=== PATIENT | male | born 1930 | race Caucasian/White ===

== ENCOUNTER → 2018-01-11 | Outpatient (CLI) | payer MEDICARE, BC ==
[2018-01-11 15:16] LABS: Basophils # (A) 0.1 k/uL (0-0.2); Basophils % (A) 1 %; Eosinophils # (A) 0.5 k/uL (0-0.7); Eosinophils % (A) 5 %; HCT 40.3 % (39.0-53.0); HGB 13.1 gm/dL (13.0-17.5); Lymphocytes % (A) 21 %; MCH 30.3 pg (25.0-35.0); MCHC 32.5 g/dL (31.0-37.0); MCV 93.4 fL (80.0-100.0); Mean Platelet Volume 8.2; Monocytes # (A) 0.5 k/uL (0-1.0); Monocytes % (A) 5 %; Neutrophils # (A) 6.3 k/uL (1.3-7.7); Neutrophils % (A) 66 %; Platelet Count 191 k/uL (150-450); RBC 4.31 m/uL (4.30-5.90); RDW 14.1 % (11.5-15.5); WBC 9.5 k/uL (3.8-10.6)
[2018-01-11 15:18] LABS: Appearance,Urine Clear (Clear); Bacteria,Urine Rare /hpf; Bilirubin,Urine Negative (Negative); Blood,Urine Large (Negative); Budding Yeast,Urine Occasional /hpf; Color,Urine Yellow; Glucose,Urine (UA) Negative (Negative); Ketones,Urine Negative (Negative); Leukocyte Esterase,Urine Trace (Negative); Mucus,Urine Rare /hpf; Nitrite,Urine Negative (Negative); PH, Urine 5.5 (5.0-8.0); Protein,Urine Trace (Negative); RBC,Urine >182 /hpf (0-5); Specific Gravity,Urine 1.011 (1.001-1.035); Squamous Epithelial Cell,Urine <1 /hpf (0-4); Urobilinogen,Urine <2.0 mg/dL (<2.0); WBC,Urine 12 /hpf (0-5)
[2018-01-11 15:32] LABS: Calcium 10.1 mg/dL (8.4-10.2); Potassium 5.2 mmol/L (3.5-5.1)
== END | disposition home or self-care (01) ==
LOC: LABPAT 14:22
PROVIDERS: ATTEND Urology
DX: Z01.818 Encounter for other preprocedural examination (principal); I10 Essential (primary) hypertension; C67.9 Malignant neoplasm of bladder, unspecified; Z01.812 Encounter for preprocedural laboratory examination
CPT/HCPCS: 36415; 80048; 81001; 85025; 87086; 93005

== ENCOUNTER → 2018-04-01 | Outpatient (CLI) | payer MEDICARE, BC ==
[2018-04-01 14:57] LABS: HCT 40.6 % (39.0-53.0); HGB 12.9 gm/dL (13.0-17.5); MCH 29.6 pg (25.0-35.0); MCHC 31.9 g/dL (31.0-37.0); Mean Platelet Volume 7.3; Platelet Count 237 k/uL (150-450); RBC 4.37 m/uL (4.30-5.90); RDW 14.3 % (11.5-15.5); WBC 13.3 k/uL (3.8-10.6)
[2018-04-01 15:06] LABS: Calcium 9.5 mg/dL (8.4-10.2); Potassium 4.8 mmol/L (3.5-5.1)
[2018-04-01 16:15] LABS: Appearance,Urine Clear (Clear); Bilirubin,Urine Negative (Negative); Blood,Urine Negative (Negative); Color,Urine Yellow; Glucose,Urine (UA) Negative (Negative); Ketones,Urine Negative (Negative); Leukocyte Esterase,Urine Negative (Negative); Nitrite,Urine Negative (Negative); PH, Urine 5.5 (5.0-8.0); Protein,Urine Negative (Negative); Specific Gravity,Urine 1.011 (1.001-1.035); Urobilinogen,Urine <2.0 mg/dL (<2.0)
== END ==
LOC: LABPAT 14:39
PROVIDERS: ATTEND Urology
DX: Z01.818 Encounter for other preprocedural examination (principal); Z01.812 Encounter for preprocedural laboratory examination; C67.9 Malignant neoplasm of bladder, unspecified; I10 Essential (primary) hypertension; R31.29 Other microscopic hematuria
CPT/HCPCS: 80048; 81003; 85027; 87086; 93005

== ENCOUNTER 2018-04-06 08:36 | Day surgery (SDC) | payer MEDICARE, BC ==
[2018-03-30 16:14] VITALS: BMI 31.3
--- NOTE | 2018-04-05 20:53 | P.GSHP ---
History of Present Illness H&P Date: 04/05/18 87 yo male with a history of prostate cancer treated with ebrt and lhrh. He has donewell with that HE recently had gross hematuria Upper tract studies were normal Cysto identified several bladder tumors He comes for a turbt - Constitutional Constitutional: Denies chills, Denies fever - EENT Eyes: denies blurred vision, denies pain Ears, nose, mouth and throat: Denies headache, Denies sore throat - Cardiovascular Cardiovascular: Denies chest pain, Denies shortness of breath - Respiratory Respiratory: Denies cough, Denies 7 - Gastrointestinal Gastrointestinal: Denies abdominal pain, Denies diarrhea, Denies nausea, Denies vomiting - Genitourinary (Female) Genitourinary: Denies dysuria, Denies hematuria - Genitourinary (Male) Genitourinary: Denies dysuria, Denies hematuria - Musculoskeletal Musculoskeletal: Denies myalgias - Integumentary Integumentary: Denies pruritus, Denies rash - Neurological Neurological: Denies numbness, Denies weakness - Psychiatric Psychiatric: Denies anxiety, Denies depression - Endocrine Endocrine: Denies fatigue, Denies weight change Past Medical History Past Medical History: Cancer, COPD, Eye Disorder, GERD/Reflux, Hyperlipidemia, Hypertension, Osteoarthritis (OA), Prostate Disorder Additional Past Medical History / Comment(s): HX PROSTATE CA 2010, HAD RADIATION TX, SEEDS IMPLANTED. BLADDER CA CURRENT. BLOOD IN URINE OCC. HX GLAUCOMA, DETACHED RETINA, LOSS VISION RT EYE. COPD EXAC 01/2018, BEING FOLLOWED BY DR SANTOS, WITH F/U APPT FOR FINAL CLEARANCE VISIT 04/01/18. HAD STEROIDS IN LAST MONTH. History of Any Multi-Drug Resistant Organisms: None Reported Past Surgical History: Hernia Repair, Tonsillectomy Additional Past Surgical History / Comment(s): RT EYE SURGERY. EXC CATARACTS. COLONOSCOPY. Past Anesthesia/Blood Transfusion Reactions: Previous Problems w/ Anesthesia Additional Past Anesthesia/Blood Transfusion Reaction / Comment(s): TAKES LONG TIME TO AWAKEN, EVEN WITH COLONOSCOPY. Smoking Status: Former smoker - Past Family History Mother Family Medical History: No Reported History Medications and Allergies Home Medications Medication Instructions Recorded Confirmed Type Albuterol Inhaler [Ventolin Hfa 1 - 2 puff INHALATION RT-Q6H PRN 03/30/18 History Inhaler] Albuterol Nebulized (Conc) 2.5 mg INHALATION TID 03/30/18 03/30/18 History [Ventolin Nebulized (Conc)] Budesonide [Pulmicort] 0.5 mg INHALATION BID 03/30/18 03/30/18 History Formoterol Fumarate [Perforomist] 20 mcg INHALATION BID 03/30/18 03/30/18 History Losartan Potassium [Cozaar] 100 mg PO DAILY 03/30/18 03/30/18 History Multivitamins, Thera [Multivitamin 1 tab PO DAILY 03/30/18 03/30/18 History (formulary)] Naproxen Sodium [Aleve] 220 - 440 mg PO BID PRN 03/30/18 03/30/18 History Omeprazole [PriLOSEC] 20 mg PO AC-BID 03/30/18 03/30/18 History Allergies Allergy/AdvReac Type Severity Reaction Status Date / Time Penicillins Allergy Unknown Verified 03/30/18 15:28 Surgical - Exam - General well developed, well nourished, no distress - Eyes PERRL - ENT no hearing loss - Neck no masses, trachea midline - Respiratory normal expansion, normal respiratory effort - Cardiovascular Rhythm: regular - Abdomen Abdomen: soft, non tender - Genitourinary normal penis with no external lesions, testicles present - Integumentary no rash, no growths - Neurologic normal coordination, normal sensation - Musculoskeletal normal gait, normal posture - Psychiatric oriented to time, oriented to person, oriented to place, speech is normal, memory intact Assessment and Plan Assessment: Impression: Groass hematuria secondary to bladder tumors.. Plan Turbt
[~2018-04-06 08:36] MED LIST: HYDROmorphone 0.5 MG/0.5 ML SYRINGE IVP PRN; LACTATED RINGERS 1,000 ML IV SCH; LIDOCAINE 1% 20 ML VIAL (10MG/ML) FOR IV START INTRADERMA PRN; ONDANSETRON 4 MG/2 ML VIAL IVP ONE; Pre Op ABX Message 1 EACH MISC MISCELLANE ONE
[2018-04-06] MEDS ORDERED: DEXAMETHASONE SOD PHOS (MDV) 100 MG/10 ML VIAL IV ONE (09:07)
[2018-04-06] MEDS ORDERED: fentaNYL (PF) 50 MCG/ML 2 ML AMP ONE (10:06)
[2018-04-06] MEDS ORDERED: MIDAZOLAM 2 MG/2 ML VIAL ONE (10:06)
[2018-04-06] MEDS ORDERED: PROPOFOL 10 MG/ML 20 ML VIAL IV ONE (10:06)
[2018-04-06] MEDS ORDERED: SUCCINYLCHOLINE CHLORIDE 100 MG/5 ML SYR IV ONE (10:06)
[2018-04-06] MEDS ORDERED: LIDOCAINE 1% INJ 10MG/ML (20 ML MDV) ONE (10:06)
--- NOTE | 2018-04-06 10:52 | P.OP ---
Date of Procedure: 04/06/18 Preoperative Diagnosis: Bladder cancer Postoperative Diagnosis: Same Procedure(s) Performed: TURBT, small Anesthesia: GETA Surgeon: Harish Gray Estimated Blood Loss (ml): 5 Pathology: other (Bladder tumor) Condition: stable Disposition: PACU Indications for Procedure: The patient is 87. Gross hematuria. Evaluation identified a small bladder tumor on the left trigone. He comes for resection Description of Procedure: Patient is brought to the operating suite. He is given successful general endotracheal anesthesia. He's placed lithotomy position with a sterile prep and drape. The urethra is dilated with [place] sounds from [id number]. Under direct vision the 26-Swedish sheath Foroblique lens and direct vision obturator introduced into the urethra. The urethra is normal. The prostate is not obstructing. Upon entering the bladder there is a small tumor on the left hemitrigone. The bladder is inspected and normal. With the Garcia resectoscope the tumor was resected medially to laterally. The tumor is evacuated from the bladder. The base of the tumor is cauterized thoroughly. The tumor cover the left ureteral orifice the right ureteral orifice is normal. There is no hydronephrosis on computed tomography scan. Jerry catheters placed patient's awakened and returned recovery room in good condition. He'll be discharged home upon recovery and found in the office next week for catheter removal pathology report.
[2018-04-06 11:14] VITALS: TEMP 96.9
[2018-04-06 11:35] VITALS: RESP 16
[2018-04-06 13:09] VITALS: BP 122/79; PULSE 81
== END 2018-04-06 13:30 | disposition home or self-care (01) ==
LOC: OR 08:36
PROVIDERS: ATTEND Urology
DX: C67.9 Malignant neoplasm of bladder, unspecified (principal); Z85.46 Personal history of malignant neoplasm of prostate; J44.9 Chronic obstructive pulmonary disease, unspecified; K21.9 Gastro-esophageal reflux disease without esophagitis; E78.5 Hyperlipidemia, unspecified; I10 Essential (primary) hypertension; M19.90 Unspecified osteoarthritis, unspecified site; Z92.3 Personal history of irradiation; Z87.891 Personal history of nicotine dependence; Z79.899 Other long term (current) drug therapy; Z88.0 Allergy status to penicillin
CPT/HCPCS: 52234; 88307; J2250; J2405; J2001; J3010; J1100; J0330; J2704; J1170

== ENCOUNTER 2018-04-07 00:44 | Emergency (ER) | payer MEDICARE, BC ==
[2018-04-07 00:56] VITALS: TEMP 98.4
[2018-04-07] MEDS ORDERED: PHENAZOPYRIDINE 200 MG TAB PO STA (02:41)
[2018-04-07] MEDS ORDERED: SODIUM CHLORIDE 0.9% 1,000 ML IV ONE (02:41)
[2018-04-07] MEDS ORDERED: MORPHINE SULFATE 2 MG/ML SYRINGE IVP STA (02:41)
--- NOTE | 2018-04-07 03:29 | ED ---
Abdominal Pain HPI - General Chief Complaint: Abdominal Pain Stated Complaint: male Time Seen by Provider: 04/07/18 01:22 Source: patient Mode of arrival: wheelchair Limitations: no limitations - History of Present Illness Initial Comments: 87-year-old male patient presents to the emergency department today for complaints of suprapubic pain and cramping. Patient underwent transurethral removal of bladder tumors earlier in the day. Was discharged at 3:00. This evening patient started having pain to the suprapubic region. Did pull on the catheter. They deny any hematuria in the output. reports patient has not been eating or drinking anything today, states he didn't feel like it. He denies any nausea or vomiting. Denies any fevers or chills. He believes his catheter may be plugged. Patient denies any recent rash, shortness breath, chest pain, nausea, vomiting, diarrhea, constipation, back pain, numbness, tingling, dizziness, weakness, headache, visual changes, or any other complaints. - Related Data Home Medications Medication Instructions Recorded Confirmed Albuterol Inhaler [Ventolin Hfa 1 - 2 puff INHALATION RT-Q6H PRN 03/30/18 Inhaler] Albuterol Nebulized (Conc) 2.5 mg INHALATION TID 03/30/18 04/06/18 [Ventolin Nebulized (Conc)] Budesonide [Pulmicort] 0.5 mg INHALATION BID 03/30/18 04/06/18 Formoterol Fumarate [Perforomist] 20 mcg INHALATION BID 03/30/18 04/06/18 Losartan Potassium [Cozaar] 100 mg PO DAILY 03/30/18 04/06/18 Multivitamins, Thera [Multivitamin 1 tab PO DAILY 03/30/18 04/06/18 (formulary)] Naproxen Sodium [Aleve] 220 - 440 mg PO BID PRN 03/30/18 04/06/18 Omeprazole [PriLOSEC] 20 mg PO AC-BID 03/30/18 04/06/18 Previous Rx's Medication Instructions Recorded Acetaminophen with Codeine 1 tab PO Q4H PRN 3 Days #14 tab 04/06/18 [Tylenol w/codeine #3] Allergies Allergy/AdvReac Type Severity Reaction Status Date / Time Penicillins Allergy Unknown Verified 04/06/18 08:51 Review of Systems ROS Statement: Those systems with pertinent positive or pertinent negative responses have been documented in the HPI. ROS Other: All systems not noted in ROS Statement are negative. Past Medical History Past Medical History: GERD/Reflux, Hypertension, Respiratory Disorder History of Any Multi-Drug Resistant Organisms: None Reported Past Surgical History: Bladder Surgery, Hernia Repair Past Psychological History: Anxiety Smoking Status: Former smoker Past Alcohol Use History: None Reported Past Drug Use History: None Reported General Exam Limitations: no limitations General appearance: alert, in no apparent distress, other (Physical well- developed, well-nourished adult male patient in no acute distress. Vital signs upon presentation are temperature 98.4F, pulse 63, respirations 18, blood pressure 139/69, pulse ox 95% on room air.) ENT exam: Present: normal exam, normal oropharynx, mucous membranes moist Respiratory exam: Present: normal lung sounds bilaterally. Absent: respiratory distress, wheezes, rales, rhonchi, stridor Cardiovascular Exam: Present: regular rate, normal rhythm, normal heart sounds. Absent: systolic murmur, diastolic murmur, rubs, gallop, clicks GI/Abdominal exam: Present: soft, tenderness (Left lower quadrant tenderness), normal bowel sounds. Absent: distended, guarding, rebound, rigid Neurological exam: Present: alert, oriented X3, CN II-XII intact Psychiatric exam: Present: normal affect, normal mood Skin exam: Present: warm, dry, intact, normal color. Absent: rash Course Vital Signs 04/07/18 04/07/18 00:50 04:09 Temperature 98.4 F Pulse Rate 63 81 Respiratory 18 16 Rate Blood Pressure 139/69 116/75 O2 Sat by Pulse 95 95 Oximetry Medical Decision Making - Medical Decision Making 87-year-old male patient presents to the emergency department today for evaluation of suprapubic abdominal cramping and possible obstructed catheter. Physical examination did reveal some mild left lower quadrant tenderness. Catheter was exchanged. Patient had minimal output suited infused 1 L of normal saline as he had not been having good oral intake throughout the day. Patient did have output of clear yellow urine approximately 200 mL. Patient is given morphine and Pyridium in the department, upon reevaluation he reports resolution of symptoms. He'll be discharged home with instructions to increase his fluid intake. Is instructed to follow up with Dr. Gray for recheck as soon as possible. Return parameters were discussed in detail. He verbalizes understanding and agrees with this plan. Disposition Clinical Impression: Suprapubic pain, Postoperative pain Disposition: HOME SELF-CARE Condition: Good Instructions: Jerry Catheter Placement and Care (ED), Abdominal Pain (ED) Additional Instructions: While in the emergency department Ady had a Jerry catheter change. We did have output of clear yellow urine. Patient received morphine and Pyridium for what seemed to be bladder spasms. He is instructed to follow-up with his urologist for recheck in 1-2 days. Return parameters were discussed in detail. He verbalizes understanding and agrees with this plan. Is patient prescribed a controlled substance at d/c from ED?: No Referrals: Ryan Arredondo MD [Primary Care Provider] - 1-2 days Time of Disposition: 03:57
[2018-04-07 04:10] VITALS: BP 116/75; PULSE 81; RESP 16
== END 2018-04-07 04:09 | disposition home or self-care (01) ==
LOC: EC 00:44
DX: G89.18 Other acute postprocedural pain (principal); R10.30 Lower abdominal pain, unspecified; K21.9 Gastro-esophageal reflux disease without esophagitis; I10 Essential (primary) hypertension; Z79.51 Long term (current) use of inhaled steroids; Z79.899 Other long term (current) drug therapy; Z88.0 Allergy status to penicillin; Z87.891 Personal history of nicotine dependence
CPT/HCPCS: 99284; 51702; 96374; 96361; J2270

== ENCOUNTER 2018-04-08 08:03 | Observation (INO) | payer MEDICARE, BC ==
[2018-04-08] MEDS ORDERED: MORPHINE SULFATE 4 MG/ML SYRINGE IV STA (08:26)
[2018-04-08] MEDS ORDERED: SODIUM CHLORIDE 0.9% 1,000 ML IV STA (08:26)
[2018-04-08] MEDS ORDERED: ONDANSETRON 4 MG/2 ML VIAL IVP STA (08:26)
--- NOTE | 2018-04-08 08:29 | ED ---
General Adult HPI - General Source: EMS, RN notes reviewed, old records reviewed Mode of arrival: EMS Limitations: no limitations <Joseph Colon - Last Filed: 04/08/18 10:46> <Reji Pederson - Last Filed: 04/08/18 14:00> - General Chief complaint: Abdominal Pain Stated complaint: left side abdominal pain Time Seen by Provider: 04/08/18 08:21 - History of Present Illness Initial comments: Patient 87-year-old male presenting to the emergency room today with a chief complaint of increased abdominal pain. Patient does admit that he had a procedure performed 2 days ago to remove tumors from the bladder. Patient states that over the past 2 days she's been having increased pain in the left side of the abdomen. He does admit that he had pain or discomfort in this area prior to surgery. Has increased. He does admit that he feels more bloated and abdomen more distended. He does admit that he has been passing some gas but has not had a bowel movement since surgery. Patient states appetites decreased. Denies any other complaints or symptoms. Patient denies any recent fever, chills, shortness of breath, chest pain, back pain, vomiting, numbness or tingling, headaches or visual changes, or any other complaints. (Joseph Colon) - Related Data Home Medications Medication Instructions Recorded Confirmed Albuterol Inhaler [Ventolin Hfa 1 - 2 puff INHALATION RT-Q6H PRN 03/30/18 Inhaler] Albuterol Nebulized (Conc) 2.5 mg INHALATION RT-TID 03/30/18 04/08/18 [Ventolin Nebulized (Conc)] Budesonide [Pulmicort] 0.5 mg INHALATION RT-BID 03/30/18 04/08/18 Formoterol Fumarate [Perforomist] 20 mcg INHALATION RT-BID 03/30/18 04/08/18 Losartan Potassium [Cozaar] 100 mg PO DAILY 03/30/18 04/08/18 Omeprazole [PriLOSEC] 20 mg PO AC-BID 03/30/18 04/08/18 Previous Rx's Medication Instructions Recorded Acetaminophen with Codeine 1 tab PO Q4H PRN 3 Days #14 tab 04/06/18 [Tylenol w/codeine #3] Allergies Allergy/AdvReac Type Severity Reaction Status Date / Time Penicillins Allergy Unknown Verified 04/08/18 08:52 Review of Systems ROS Other: All systems not noted in ROS Statement are negative. <Joseph Colon - Last Filed: 04/08/18 10:46> ROS Other: All systems not noted in ROS Statement are negative. <Reji Pederson - Last Filed: 04/08/18 14:00> ROS Statement: Those systems with pertinent positive or pertinent negative responses have been documented in the HPI. Past Medical History Past Medical History: GERD/Reflux, Hypertension, Respiratory Disorder Additional Past Medical History / Comment(s): Bladder Cancer History of Any Multi-Drug Resistant Organisms: None Reported Past Surgical History: Bladder Surgery, Hernia Repair Past Psychological History: Anxiety Smoking Status: Former smoker Past Alcohol Use History: None Reported Past Drug Use History: None Reported <Joseph Colon - Last Filed: 04/08/18 10:46> General Exam Limitations: no limitations <Joseph Colon - Last Filed: 04/08/18 10:46> <Reji Pederson - Last Filed: 04/08/18 14:00> - General Exam Comments Initial Comments: General: The patient is awake and alert, in no distress, and does not appear acutely ill. Eye: There is normal conjunctiva bilaterally. No signs of icterus. Ears, nose, mouth and throat: There are moist mucous membranes and no oral lesions. Neck: The neck is supple, there is no tenderness or JVD. Cardiovascular: There is a regular rate and rhythm. No murmur, rub or gallop is appreciated. Respiratory: Lungs are clear to auscultation, respirations are non-labored, breath sounds are equal. No wheezes, stridor, rales, or rhonchi. Gastrointestinal: Abdomen soft on palpation. He does have tenderness left lower quadrant. No rebound, guarding or CVA tenderness. Musculoskeletal: Normal ROM, no tenderness. Strength 5/5. Sensation intact. Pulses equal bilaterally 2+. Neurological: A&O x 3. CN II-XII intact, There are no obvious motor or sensory deficits. Coordination appears grossly intact. Speech is normal. Skin: Skin is warm and dry and no rashes or lesions are noted. Psychiatric: Cooperative, appropriate mood & affect, normal judgment. (Joseph Colon) Vital Signs 04/08/18 04/08/18 08:19 11:20 Temperature 99.6 F 99.0 F Pulse Rate 91 85 Respiratory 18 16 Rate Blood Pressure 186/85 120/57 O2 Sat by Pulse 96 96 Oximetry Medical Decision Making - Lab Data Result diagrams: 04/08/18 09:00 04/08/18 09:00 <Joseph Colon - Last Filed: 04/08/18 10:46> - Lab Data Result diagrams: 04/08/18 09:00 04/08/18 09:00 <Reji Pederson - Last Filed: 04/08/18 14:00> - Medical Decision Making Patient reexamined at this time shows no signs of distress is resting comfortably at this time. Patient does have left-sided abdominal pain that has been worse over the last 2 days. Has not been passing gas. Patient states that he's not had a bowel movement since prior to his procedure. Patient did have procedure to remove masses in the bladder 2 days ago. Urine sample does have blood no sign of infection. Patient's white count elevated 23,000. X-ray reviewed and does show concern for small bowel structure. CT was performed to rule out any infection. Case discussed and seen by tender physician Dr. Pederson who did discuss case with admitting physician Dr. Keen who will admit the patient with consult to surgery. Patient will remain nothing by mouth at this time. Patient and family are aware the plan. (Joseph Colon) 7-year-old male with left lower quadrant abdominal pain, decreased stool output over the past 2 days. Patient postop bladder tumor resection. He has an indwelling Jerry catheter. X-rays obtained, shows concern for dilated bowel and small bowel obstruction. CT is performed, there is no obstruction on CT. Patient does have significant lab abnormalities including leukocytosis, and worsening kidney function. He receives IV hydration, cultures of both the urine and bladder are obtained. Patient does not otherwise appear septic, will trend no blood cell count and await culture results prior to starting antibiotics. Case discussed with admitting physician will except, surgery placed on consult. (Reji Pederson) - Lab Data Lab Results 04/08/18 04/08/18 04/08/18 Range/Units 09:00 09:00 09:00 WBC 23.6 H (3.8-10.6) k/uL RBC 4.10 L (4.30-5.90) m/uL Hgb 12.5 L (13.0-17.5) gm/dL Hct 38.1 L (39.0-53.0) % MCV 92.8 (80.0-100.0) fL MCH 30.4 (25.0-35.0) pg MCHC 32.7 (31.0-37.0) g/dL RDW 14.3 (11.5-15.5) % Plt Count 173 (150-450) k/uL Neutrophils % 88 % Lymphocytes % 6 % Monocytes % 4 % Eosinophils % 0 % Basophils % 0 % Neutrophils # 20.9 H (1.3-7.7) k/uL Lymphocytes # 1.3 (1.0-4.8) k/uL Monocytes # 1.0 (0-1.0) k/uL Eosinophils # 0.1 (0-0.7) k/uL Basophils # 0.0 (0-0.2) k/uL Sodium 139 (137-145) mmol/L Potassium 4.8 (3.5-5.1) mmol/L Chloride 105 (98-107) mmol/L Carbon Dioxide 25 (22-30) mmol/L Anion Gap 9 mmol/L BUN 29 H (9-20) mg/dL Creatinine 2.23 H (0.66-1.25) mg/dL Est GFR (CKD-EPI)AfAm 30 (>60 ml/min/1.73 sqM) Est GFR (CKD-EPI)NonAf 26 (>60 ml/min/1.73 sqM) Glucose 140 H (74-99) mg/dL Plasma Lactic Acid Oli (0.7-2.0) mmol/L Calcium 9.5 (8.4-10.2) mg/dL Total Bilirubin 1.2 (0.2-1.3) mg/dL AST 25 (17-59) U/L ALT 28 (21-72) U/L Alkaline Phosphatase 51 (38-126) U/L Total Protein 6.7 (6.3-8.2) g/dL Albumin 4.0 (3.5-5.0) g/dL Amylase 36 (30-110) U/L Lipase 27 (23-300) U/L Urine Color Yellow Urine Appearance Clear (Clear) Urine pH 5.5 (5.0-8.0) Ur Specific Spivey 1.012 (1.001-1.035) Urine Protein 1+ H (Negative) Urine Glucose (UA) Negative (Negative) Urine Ketones 1+ H (Negative) Urine Blood Moderate H (Negative) Urine Nitrite Negative (Negative) Urine Bilirubin Negative (Negative) Urine Urobilinogen <2.0 (<2.0) mg/dL Ur Leukocyte Esterase Large H (Negative) Urine RBC 100 H (0-5) /hpf Urine WBC 20 H (0-5) /hpf Ur Squamous Epith Cells 1 (0-4) /hpf Urine Bacteria Occasional H (None) /hpf Urine Mucus Rare H (None) /hpf 04/08/18 Range/Units 09:00 WBC (3.8-10.6) k/uL RBC (4.30-5.90) m/uL Hgb (13.0-17.5) gm/dL Hct (39.0-53.0) % MCV (80.0-100.0) fL MCH (25.0-35.0) pg MCHC (31.0-37.0) g/dL RDW (11.5-15.5) % Plt Count (150-450) k/uL Neutrophils % % Lymphocytes % % Monocytes % % Eosinophils % % Basophils % % Neutrophils # (1.3-7.7) k/uL Lymphocytes # (1.0-4.8) k/uL Monocytes # (0-1.0) k/uL Eosinophils # (0-0.7) k/uL Basophils # (0-0.2) k/uL Sodium (137-145) mmol/L Potassium (3.5-5.1) mmol/L Chloride (98-107) mmol/L Carbon Dioxide (22-30) mmol/L Anion Gap mmol/L BUN (9-20) mg/dL Creatinine (0.66-1.25) mg/dL Est GFR (CKD-EPI)AfAm (>60 ml/min/1.73 sqM) Est GFR (CKD-EPI)NonAf (>60 ml/min/1.73 sqM) Glucose (74-99) mg/dL Plasma Lactic Acid Oli 1.2 (0.7-2.0) mmol/L Calcium (8.4-10.2) mg/dL Total Bilirubin (0.2-1.3) mg/dL AST (17-59) U/L ALT (21-72) U/L Alkaline Phosphatase (38-126) U/L Total Protein (6.3-8.2) g/dL Albumin (3.5-5.0) g/dL Amylase (30-110) U/L Lipase (23-300) U/L Urine Color Urine Appearance (Clear) Urine pH (5.0-8.0) Ur Specific Spivey (1.001-1.035) Urine Protein (Negative) Urine Glucose (UA) (Negative) Urine Ketones (Negative) Urine Blood (Negative) Urine Nitrite (Negative) Urine Bilirubin (Negative) Urine Urobilinogen (<2.0) mg/dL Ur Leukocyte Esterase (Negative) Urine RBC (0-5) /hpf Urine WBC (0-5) /hpf Ur Squamous Epith Cells (0-4) /hpf Urine Bacteria (None) /hpf Urine Mucus (None) /hpf Disposition Is patient prescribed a controlled substance at d/c from ED?: No Time of Disposition: 10:48 <Joseph Colon - Last Filed: 04/08/18 10:46> <Reji Pederson - Last Filed: 04/08/18 14:00> Clinical Impression: Abdominal pain Disposition: ADMITTED IP TO THIS HOSP Condition: Good
[2018-04-08 09:31] LABS: Basophils % (A) 0 %; Eosinophils # (A) 0.1 k/uL (0-0.7); Eosinophils % (A) 0 %; HCT 38.1 % (39.0-53.0); HGB 12.5 gm/dL (13.0-17.5); Lymphocytes # (A) 1.3 k/uL (1.0-4.8); Lymphocytes % (A) 6 %; MCH 30.4 pg (25.0-35.0); MCHC 32.7 g/dL (31.0-37.0); MCV 92.8 fL (80.0-100.0); Mean Platelet Volume 8.4; Monocytes % (A) 4 %; Neutrophils # (A) 20.9 k/uL (1.3-7.7); Neutrophils % (A) 88 %; Platelet Count 173 k/uL (150-450); RDW 14.3 % (11.5-15.5); WBC 23.6 k/uL (3.8-10.6)
[2018-04-08 09:32] LABS: Appearance,Urine Clear (Clear); Bacteria,Urine Occasional /hpf; Bilirubin,Urine Negative (Negative); Blood,Urine Moderate (Negative); Color,Urine Yellow; Glucose,Urine (UA) Negative (Negative); Ketones,Urine 1+ (Negative); Leukocyte Esterase,Urine Large (Negative); Mucus,Urine Rare /hpf; Nitrite,Urine Negative (Negative); PH, Urine 5.5 (5.0-8.0); Protein,Urine 1+ (Negative); RBC,Urine 100 /hpf (0-5); Specific Gravity,Urine 1.012 (1.001-1.035); Squamous Epithelial Cell,Urine 1 /hpf (0-4); Urobilinogen,Urine <2.0 mg/dL (<2.0)
[2018-04-08 09:39] LABS: Calcium 9.5 mg/dL (8.4-10.2); Potassium 4.8 mmol/L (3.5-5.1); Total Bilirubin 1.2 mg/dL (0.2-1.3); Total Protein 6.7 g/dL (6.3-8.2)
--- NOTE | 2018-04-08 09:52 | XR ---
EXAMINATION TYPE: XR KUB DATE OF EXAM: 04/08/2018 COMPARISON: None INDICATION: Bladder tumor removal, left side abdominal pain TECHNIQUE: Single view abdomen frontal projection upright view FINDINGS: There are multiple air-fluid levels within small bowel loops. Small bowel loops appear prominent. Pedro e subtle differential air-fluid levels may be present. There is some fecal debris is within the colon . Clinical consideration for partial small bowel obstruction is recommended. Psoas margins are normal. No organomegaly is present. No free air is evident. No mass effect is evident. IMPRESSION: 1. Findings suggestive for partial small bowel obstruction likely within the proximal ileal region. R eport was called to emergency room DAT Colon by Dr. Fitzgerald by telephone at the time of interpretatio n.
--- NOTE | 2018-04-08 10:17 | CT ---
EXAMINATION TYPE: CT abdomen pelvis wo con DATE OF EXAM: 04/08/2018 COMPARISON: 06/20/2013 HISTORY: Pt c/o pelvic pain. Recent sx last week, tumor removed from bladder CT DLP: 600.3 mGycm Examination of the solid and hollow viscera is limited given the lack of contrast. FINDINGS: LUNG BASES: No evidence for nodule. Patchy basilar infiltrates noted. LIVER/GB: The gallbladder is unremarkable. No space-occupying hepatic lesion. PANCREAS: No pancreatic mass identified. No inflammatory process seen. SPLEEN: No evidence for splenomegaly. No intrasplenic lesions seen. ADRENALS: No adrenal nodules identified. No evidence for thickening. KIDNEYS: Multiple bilateral renal lesions may reflect cysts although the lack of contrast limits eval uation. There is perinephric stranding identified which appears to be chronic in nature. No hydroneph rosis or nephrolithiasis appreciated. Jerry balloon catheter is noted within the urinary bladder whic h is currently decompressed. BOWEL: Appendix has a normal appearance. No evidence of bowel obstruction. No inflammatory process. Lymph nodes: No evidence for adenopathy greater than 1 cm. Abdominal aorta: Atheromatous changes seen. No evidence for aneurysm. Genital organs: No significant abnormality. Other: Fat-containing left inguinal hernia. IMPRESSION: 1. Jerry balloon catheter within a decompressed urinary bladder. 2. Fat-containing left inguinal hernia. 3. Chronic appearing perinephric stranding without hydronephrosis or nephrolithiasis.
[2018-04-08] MEDS ORDERED: SODIUM CHLORIDE 0.9% 1,000 ML IV ONE (10:49)
[2018-04-08] MEDS ORDERED: ONDANSETRON 4 MG/2 ML VIAL IVP PRN (10:49)
[2018-04-08] MEDS ORDERED: NALOXONE 0.4 MG/ML 1 ML VIAL IV PRN (10:49)
[2018-04-08] MEDS ORDERED: MORPHINE SULFATE 4 MG/ML SYRINGE IV PRN (10:49)
[2018-04-08] MEDS ORDERED: ALBUTEROL NEBULIZED 2.5 MG/3 ML INHALATION PRN (12:11)
[2018-04-08] MEDS ORDERED: LEVOFLOXACIN 750MG-D5W PMX 750 MG in DEXTROSE/WATER 1 150ML.BAG IVPB STA (12:21)
--- NOTE | 2018-04-08 12:49 | P.GSCN ---
History of Present Illness Consult date: 04/08/18 History of present illness: This is a 87-year-old male who presents with a chief complaint of left lower quadrant abdominal pain and suprapubic abdominal pain. He had transurethral resection of bladder tumor performed by urology 2 days ago. He has not followed up with them. He denies any fevers or chills at this time. He states that he's had increasing pain since the surgery. He has a Jerry catheter in place. He has not passed a bowel movement since Wednesday the day of the surgery. He is not currently passing flatus. No nausea or vomiting at this time. No other complaints. 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 Smoking Status: Former smoker - Past Family History Father Family Medical History: CVA/TIA, Hypertension, Osteoarthritis (OA) Additional Family Medical History / Comment(s): Babs, CVA Mother Family Medical History: Eye Disorder, Hypertension Additional Family Medical History / Comment(s): Mother was blind. Medications and Allergies Home Medications Medication Instructions Recorded Confirmed Type Albuterol Inhaler [Ventolin Hfa 1 - 2 puff INHALATION RT-Q6H PRN 03/30/18 History Inhaler] Albuterol Nebulized (Conc) 2.5 mg INHALATION RT-TID 03/30/18 04/08/18 History [Ventolin Nebulized (Conc)] Budesonide [Pulmicort] 0.5 mg INHALATION RT-BID 03/30/18 04/08/18 History Formoterol Fumarate [Perforomist] 20 mcg INHALATION RT-BID 03/30/18 04/08/18 History Losartan Potassium [Cozaar] 100 mg PO DAILY 03/30/18 04/08/18 History Omeprazole [PriLOSEC] 20 mg PO AC-BID 03/30/18 04/08/18 History Acetaminophen with Codeine 1 tab PO Q4H PRN 3 Days #14 tab 04/06/18 04/08/18 Rx [Tylenol w/codeine #3] Allergies Allergy/AdvReac Type Severity Reaction Status Date / Time Penicillins Allergy Unknown Verified 04/08/18 08:52 Surgical - Exam Osteopathic Statement: *. No significant issues noted on an osteopathic structural exam other than those noted in the History and Physical/Consult. Vital Signs Temp Pulse Resp BP Pulse Ox 99.6 F 91 18 186/85 96 04/08/18 08:19 04/08/18 08:19 04/08/18 08:19 04/08/18 08:19 04/08/18 08:19 - General well developed, well nourished, no distress - Neck trachea midline - Respiratory normal expansion, normal respiratory effort - Cardiovascular Rhythm: regular - Abdomen Abdomen is soft mild tenderness palpation the left lower quadrant mild distention no rebound rigidity or guarding - Neurologic normal coordination, normal sensation - Musculoskeletal normal gait - Psychiatric oriented to time, oriented to person, oriented to place Results - Labs 04/08/18 09:00 04/08/18 09:00 Abnormal Lab Results - Last 24 Hours (Table) 04/08/18 04/08/18 04/08/18 Range/Units 09:00 09:00 09:00 WBC 23.6 H (3.8-10.6) k/uL RBC 4.10 L (4.30-5.90) m/uL Hgb 12.5 L (13.0-17.5) gm/dL Hct 38.1 L (39.0-53.0) % Neutrophils # 20.9 H (1.3-7.7) k/uL BUN 29 H (9-20) mg/dL Creatinine 2.23 H (0.66-1.25) mg/dL Glucose 140 H (74-99) mg/dL Urine Protein 1+ H (Negative) Urine Ketones 1+ H (Negative) Urine Blood Moderate H (Negative) Ur Leukocyte Esterase Large H (Negative) Urine RBC 100 H (0-5) /hpf Urine WBC 20 H (0-5) /hpf Urine Bacteria Occasional H (None) /hpf Urine Mucus Rare H (None) /hpf Diabetes panel 04/08/18 Range/Units 09:00 Sodium 139 (137-145) mmol/L Potassium 4.8 (3.5-5.1) mmol/L Chloride 105 (98-107) mmol/L Carbon Dioxide 25 (22-30) mmol/L BUN 29 H (9-20) mg/dL Creatinine 2.23 H (0.66-1.25) mg/dL Glucose 140 H (74-99) mg/dL Calcium 9.5 (8.4-10.2) mg/dL AST 25 (17-59) U/L ALT 28 (21-72) U/L Alkaline Phosphatase 51 (38-126) U/L Total Protein 6.7 (6.3-8.2) g/dL Albumin 4.0 (3.5-5.0) g/dL Calcium panel 04/08/18 Range/Units 09:00 Calcium 9.5 (8.4-10.2) mg/dL Albumin 4.0 (3.5-5.0) g/dL Pituitary panel 04/08/18 Range/Units 09:00 Sodium 139 (137-145) mmol/L Potassium 4.8 (3.5-5.1) mmol/L Chloride 105 (98-107) mmol/L Carbon Dioxide 25 (22-30) mmol/L BUN 29 H (9-20) mg/dL Creatinine 2.23 H (0.66-1.25) mg/dL Glucose 140 H (74-99) mg/dL Calcium 9.5 (8.4-10.2) mg/dL Adrenal panel 04/08/18 Range/Units 09:00 Sodium 139 (137-145) mmol/L Potassium 4.8 (3.5-5.1) mmol/L Chloride 105 (98-107) mmol/L Carbon Dioxide 25 (22-30) mmol/L BUN 29 H (9-20) mg/dL Creatinine 2.23 H (0.66-1.25) mg/dL Glucose 140 H (74-99) mg/dL Calcium 9.5 (8.4-10.2) mg/dL Total Bilirubin 1.2 (0.2-1.3) mg/dL AST 25 (17-59) U/L ALT 28 (21-72) U/L Alkaline Phosphatase 51 (38-126) U/L Total Protein 6.7 (6.3-8.2) g/dL Albumin 4.0 (3.5-5.0) g/dL Assessment and Plan Assessment: Abdominal pain status post TURBT Plan: Given the patient's recent history of urologic surgery I recommend patient is evaluated by urologist. There is no sign of bowel obstruction at this time. Patient may have ileus secondary to surgery I would recommend stool softeners and clear liquids as tolerated. Will defer further treatment to urology and primary care.
[2018-04-08] MEDS: ALBUTEROL NEBULIZED 2.5 MG/3 ML INHALATION SCH ×2 (13:54→19:36)
[2018-04-08] MEDS: SODIUM CHLORIDE 0.9% 1,000 ML IV SCH (14:17)
--- NOTE | 2018-04-08 16:07 | P.GSCN ---
History of Present Illness Consult date: 04/08/18 Reason for Consult: Abdominal pain, possible UTI and bladder tumor History of present illness: The patient is an 87-year-old male admitted through the emergency room this morning for evaluation of abdominal pain and leukocytosis. The patient had undergone transurethral resection of a small tumor on the left posterior bladder wall performed by Dr. Gray on 04/06/2017. 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 A catheter was left following the surgery. The patient complained of the expected catheter discomfort and urgency to void related to the catheter immediately following the surgery. His urine was initially blood tinged but this has cleared since then. He says he had left sided abdominal pain and bloating which began some time during the late afternoon or evening of 04/06. The patient was seen in the emergency room early on 04/07 and his catheter was exchanged but according to the nursing notes his bladder had not been distended and the catheter was most likely draining correctly. He continued to have abdominal pain and cramping and return to the emergency room today. He was afebrile. His white blood count was 23,600. BUN was 29/creatinine was 2.23. BUN/creatinine were 21/1.33 on 04/01. Computed tomography scan of the abdomen and pelvis showed benign-appearing left renal cysts. There was no hydronephrosis. The bladder was empty with a catheter in place. There were changes in the bowel consistent with ileus. The patient was suspected to have a urinary tract infection and was started on Levaquin. He was seen by Dr. Benavidez due to his abdominal distention and possible ileus but no specific cause could be identified. The patient has remained afebrile. He continues to complain of abdominal bloating and left-sided abdominal pain. He says he has not had a bowel movement or passed gas since 04/06. He is not hungry but has not been vomiting. 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 Smoking Status: Former smoker - Past Family History Father Family Medical History: CVA/TIA, Hypertension, Osteoarthritis (OA) Additional Family Medical History / Comment(s): Jucynthia, CVA Mother Family Medical History: Eye Disorder, Hypertension Additional Family Medical History / Comment(s): Mother was blind. Medications and Allergies Home Medications Medication Instructions Recorded Confirmed Type Albuterol Inhaler [Ventolin Hfa 1 - 2 puff INHALATION RT-Q6H PRN 03/30/18 History Inhaler] Albuterol Nebulized (Conc) 2.5 mg INHALATION RT-TID 03/30/18 04/08/18 History [Ventolin Nebulized (Conc)] Budesonide [Pulmicort] 0.5 mg INHALATION RT-BID 03/30/18 04/08/18 History Formoterol Fumarate [Perforomist] 20 mcg INHALATION RT-BID 03/30/18 04/08/18 History Losartan Potassium [Cozaar] 100 mg PO DAILY 03/30/18 04/08/18 History Omeprazole [PriLOSEC] 20 mg PO AC-BID 03/30/18 04/08/18 History Acetaminophen with Codeine 1 tab PO Q4H PRN 3 Days #14 tab 04/06/18 04/08/18 Rx [Tylenol w/codeine #3] Allergies Allergy/AdvReac Type Severity Reaction Status Date / Time Penicillins Allergy Unknown Verified 04/08/18 08:52 Surgical - Exam Vital Signs Temp Pulse Resp BP Pulse Ox 99.6 F 91 18 186/85 96 04/08/18 08:19 04/08/18 08:19 04/08/18 08:19 04/08/18 08:19 04/08/18 08:19 - General well developed, well nourished, no distress, obese - ENT no hearing loss - Neck no masses, no lymphadectomy - Respiratory normal expansion, normal respiratory effort - Abdomen Abdomen: tender (left abdomen), distended - Genitourinary normal penis with no external lesions, testicles non-tender, other (A Jerry catheter is in place and is draining somewhat concentrated urine which is grossly free of blood) Results - Labs 04/08/18 09:00 04/08/18 09:00 Abnormal Lab Results - Last 24 Hours (Table) 04/08/18 04/08/18 04/08/18 Range/Units 09:00 09:00 09:00 WBC 23.6 H (3.8-10.6) k/uL RBC 4.10 L (4.30-5.90) m/uL Hgb 12.5 L (13.0-17.5) gm/dL Hct 38.1 L (39.0-53.0) % Neutrophils # 20.9 H (1.3-7.7) k/uL BUN 29 H (9-20) mg/dL Creatinine 2.23 H (0.66-1.25) mg/dL Glucose 140 H (74-99) mg/dL Urine Protein 1+ H (Negative) Urine Ketones 1+ H (Negative) Urine Blood Moderate H (Negative) Ur Leukocyte Esterase Large H (Negative) Urine RBC 100 H (0-5) /hpf Urine WBC 20 H (0-5) /hpf Urine Bacteria Occasional H (None) /hpf Urine Mucus Rare H (None) /hpf Microbiology - Last 24 Hours (Table) 04/08/18 09:00 Urine Culture - Preliminary Urine,Voided Diabetes panel 04/08/18 Range/Units 09:00 Sodium 139 (137-145) mmol/L Potassium 4.8 (3.5-5.1) mmol/L Chloride 105 (98-107) mmol/L Carbon Dioxide 25 (22-30) mmol/L BUN 29 H (9-20) mg/dL Creatinine 2.23 H (0.66-1.25) mg/dL Glucose 140 H (74-99) mg/dL Calcium 9.5 (8.4-10.2) mg/dL AST 25 (17-59) U/L ALT 28 (21-72) U/L Alkaline Phosphatase 51 (38-126) U/L Total Protein 6.7 (6.3-8.2) g/dL Albumin 4.0 (3.5-5.0) g/dL Calcium panel 04/08/18 Range/Units 09:00 Calcium 9.5 (8.4-10.2) mg/dL Albumin 4.0 (3.5-5.0) g/dL Pituitary panel 04/08/18 Range/Units 09:00 Sodium 139 (137-145) mmol/L Potassium 4.8 (3.5-5.1) mmol/L Chloride 105 (98-107) mmol/L Carbon Dioxide 25 (22-30) mmol/L BUN 29 H (9-20) mg/dL Creatinine 2.23 H (0.66-1.25) mg/dL Glucose 140 H (74-99) mg/dL Calcium 9.5 (8.4-10.2) mg/dL Adrenal panel 04/08/18 Range/Units 09:00 Sodium 139 (137-145) mmol/L Potassium 4.8 (3.5-5.1) mmol/L Chloride 105 (98-107) mmol/L Carbon Dioxide 25 (22-30) mmol/L BUN 29 H (9-20) mg/dL Creatinine 2.23 H (0.66-1.25) mg/dL Glucose 140 H (74-99) mg/dL Calcium 9.5 (8.4-10.2) mg/dL Total Bilirubin 1.2 (0.2-1.3) mg/dL AST 25 (17-59) U/L ALT 28 (21-72) U/L Alkaline Phosphatase 51 (38-126) U/L Total Protein 6.7 (6.3-8.2) g/dL Albumin 4.0 (3.5-5.0) g/dL - Imaging CT scan - abdomen: image reviewed CT scan - chest: image reviewed Assessment and Plan (1) Abdominal pain Narrative/Plan: The patient's abdominal pain may be related to a postoperative ileus. I doubt that he has a urinary tract infection as virtually all individuals have hematuria and pyuria immediately following bladder tumor resection and a preoperative urine culture was no growth. The patient will be tried on a due clock suppository to see if this will help stimulate passage of gas. His catheter should remain in place. His path report will most likely be available sometime early next week. I will reevaluate the patient tomorrow. Current Visit: Yes Status: Acute Code(s): R10.9 - UNSPECIFIED ABDOMINAL PAIN SNOMED Code(s): 54614037
[2018-04-08] MEDS: BISACODYL 10 MG SUPP RECTAL SCH (17:25)
[2018-04-08] MEDS ORDERED: TEMAZEPAM 7.5 MG CAP PO PRN (17:28)
[2018-04-08] MEDS: PANTOPRAZOLE 40 MG TABLET PO SCH (17:28)
--- NOTE | 2018-04-08 17:48 | P.HPIM ---
History of Present Illness Chief complaint Abdominal pain and bloating. History of present illness The patient is an 87-year-old gentleman who presented to [facility] emergency room. Patient apparently had resection of a small bladder tumor on the . He has been having some abdominal pain on the left side with bloating and difficulty in passing gas for the past 48 hours. He did have his catheter changed and this did not seem to help. He is not been able to eat or drink much over the past 2 days. No definite fever or chills associated with this. Is also not had a bowel movement or moved any flatus during that period of time. Past medical history COPD History of prostate cancer History of bladder tumor Obesity Hyperlipidemia Gastroesophageal reflux hypertension Previous Smoking history ALLERGIES: Penicillin Home medications Formoterol fumarate 20 g twice a day, inhalation Pulmicort 0.5 mg twice a day inhalation Acetaminophen with codeine No. 3 one every 4 hours when necessary Omeprazole 20 mg before meals twice a day Cozaar 100 mg daily Albuterol nebulizer 2.5 mg 3 times a day Ventolin HFA inhaler 1-2 inhalations every 6 hours when necessary shortness of breath Review of systems As mentioned in history of present illness. Patient does get short of breath with minimal exertion which has been worsened by his acute condition. No chest pain or unusual cough or phlegm production at this time. No unusual headache or visual disturbances. No actual vomiting. Urinary or bowel symptoms as listed above. Full a catheter in place. No unusual edema. Social history Patient lives locally with his . Has a daughter for support. Previous smoker but quit 25 years ago. No history of excessive alcohol usage. Family history Noncontributory Physical examination Present temperature is 90.9 with a pulse of 80 and respirations 16. Blood pressure 120/57 and he is 96% saturated on room air. Head is atraumatic. Extraocular movements are intact. Neck is not stiff. No adenopathy or thyromegaly detected in the neck. Lungs revealed some expiratory wheezing. Diminished breath sounds at the bases. Heart tones were regular without definitive murmurs or rubs appreciated. Abdomen is distended. Slightly tympanitic. Bowel sounds are hypoactive. No masses detected. Tenderness mostly in the left lower quadrant area. No rebound , guarding or masses. Patient with Jerry catheter in place. Rectal exam deferred. Extremities reveal no unusual edema. Neurologically he is alert and oriented. No cranial nerves are focal weakness noted. Laboratory White count is elevated at 23 points 6 with a left shift to 20.9 neutrophils. Hemoglobin was 12.5 and platelets are 173. Sodium is 139 with potassium 4.8. BUN is elevated at 29 with a creatinine of 2.23 given him a GFR of 26 Blood sugar was 140. Lactic acid 1.2 other liver function tests were normal. Urinalysis showed large amount leukocyte esterase and 20 white cells. 100 RBCs. Nitrate was negative. KUB of the abdomen was consistent with a partial small bowel obstruction with multiple air-fluid levels in the small bowel loops. Fecal debris was also noted in the colon. CAT scan of the abdomen and pelvis did not show any evidence of hydronephrosis or nephrolithiasis. Also not consistent with a colitis. And did not show a definitive obstruction. Impression This 87-year-old gentleman presents with abdominal pain and distention consistent with a bowel ileus. He also has pyuria and hematuria that may be postop but also an elevated peripheral white count consistent with underlying infection. 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 COPD that is probably also aggravated by elevated hemidiaphragms from his ileus. Other past medical history as delineated in the past medical history body of this report. Plans Patient has been evaluated by urology and surgery. Their notes were regarded and appreciated. The patient will be placed on suppositories. Antibiotics have been added pending the cultures. Follow-up labs in the morning. Continue his maintenance medications for his underlying conditions and COPD as described above. Further recommendations pending clinical response and results of above as discussed with patient and family at bedside this afternoon. Dr. Kiet Carvalho director of admissions for me over the weekend if any concerns should arise. 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 Smoking Status: Former smoker - Past Family History Father Family Medical History: CVA/TIA, Hypertension, Osteoarthritis (OA) Additional Family Medical History / Comment(s): Juandice, CVA Mother Family Medical History: Eye Disorder, Hypertension Additional Family Medical History / Comment(s): Mother was blind. Medications and Allergies Home Medications Medication Instructions Recorded Confirmed Type Albuterol Inhaler [Ventolin Hfa 1 - 2 puff INHALATION RT-Q6H PRN 03/30/18 History Inhaler] Albuterol Nebulized (Conc) 2.5 mg INHALATION RT-TID 03/30/18 04/08/18 History [Ventolin Nebulized (Conc)] Budesonide [Pulmicort] 0.5 mg INHALATION RT-BID 03/30/18 04/08/18 History Formoterol Fumarate [Perforomist] 20 mcg INHALATION RT-BID 03/30/18 04/08/18 History Losartan Potassium [Cozaar] 100 mg PO DAILY 03/30/18 04/08/18 History Omeprazole [PriLOSEC] 20 mg PO AC-BID 03/30/18 04/08/18 History Acetaminophen with Codeine 1 tab PO Q4H PRN 3 Days #14 tab 04/06/18 04/08/18 Rx [Tylenol w/codeine #3] Allergies Allergy/AdvReac Type Severity Reaction Status Date / Time Penicillins Allergy Unknown Verified 04/08/18 08:52 Physical Exam Vitals: Vital Signs Temp Pulse Resp BP Pulse Ox 04/08/18 16:00 16 04/08/18 14:03 80 16 04/08/18 13:54 81 16 04/08/18 11:20 99.0 F 85 16 120/57 96 04/08/18 08:19 99.6 F 91 18 186/85 96 Intake and Output 04/08/18 04/08/18 04/08/18 06:59 14:59 22:59 Intake Total 300 Balance 300 Intake: Intake, IV Titration 300 Amount Levofloxacin 750Mg-D5w 150 Pmx 750 mg In Dextrose/ Water 1 150ml.bag @ 100 mls/hr IVPB ONCE STA Rx#: [id number] Sodium Chloride 0.9% 1, 150 000 ml @ 75 mls/hr IV . [id number] Rx#:[id number] Other: Voiding Method Indwelling Catheter Weight 90.718 kg 90.718 kg Results CBC & Chem 7: 04/08/18 09:00 04/08/18 09:00 Labs: Abnormal Lab Results - Last 24 Hours (Table) 04/08/18 04/08/18 04/08/18 Range/Units 09:00 09:00 09:00 WBC 23.6 H (3.8-10.6) k/uL RBC 4.10 L (4.30-5.90) m/uL Hgb 12.5 L (13.0-17.5) gm/dL Hct 38.1 L (39.0-53.0) % Neutrophils # 20.9 H (1.3-7.7) k/uL BUN 29 H (9-20) mg/dL Creatinine 2.23 H (0.66-1.25) mg/dL Glucose 140 H (74-99) mg/dL Urine Protein 1+ H (Negative) Urine Ketones 1+ H (Negative) Urine Blood Moderate H (Negative) Ur Leukocyte Esterase Large H (Negative) Urine RBC 100 H (0-5) /hpf Urine WBC 20 H (0-5) /hpf Urine Bacteria Occasional H (None) /hpf Urine Mucus Rare H (None) /hpf Microbiology - Last 24 Hours (Table) 04/08/18 09:00 Urine Culture - Preliminary Urine,Voided Thrombosis Risk Factor Assmnt - Choose All That Apply Any of the Below Risk Factors Present?: Yes Each Factor Represents 1 point: Abnormal pulmonary function (COPD), Obesity ( BMI >25) Other Risk Factors: Yes Each Risk Factor Represents 2 Points: Malignancy Each Risk Factor Represents 3 Points: Age 75 years or older Other congenital or acquired thrombophilia - If yes, enter type in comment: No Thrombosis Risk Factor Assessment Total Risk Factor Score: 7 Thrombosis Risk Factor Assessment Level: High Risk
[2018-04-08] MEDS ORDERED: traMADol 50 MG TAB PO SCH (18:00)
[2018-04-08] MEDS: FORMOTEROL FUMARATE 20 MCG/2 ML NEBU INHALATION SCH (19:36)
[2018-04-08] MEDS: BUDESONIDE 0.5 MG/2 ML NEBU INHALATION SCH (19:36)
[2018-04-08] MEDS: traMADol-ACETAMINOP 37.5-325MG 1 EACH TAB PO PRN (19:59)
[2018-04-08] MEDS: PHENAZOPYRIDINE 100 MG TAB PO SCH (21:28)
[2018-04-09] MEDS: SODIUM CHLORIDE 0.9% 1,000 ML IV SCH ×2 (02:17→14:08)
[2018-04-09 08:09] LABS: Basophils % (A) 0 %; Eosinophils # (A) 0.1 k/uL (0-0.7); Eosinophils % (A) 0 %; HCT 37.1 % (39.0-53.0); HGB 11.5 gm/dL (13.0-17.5); Hypochromasia Slight; Lymphocytes # (A) 1.2 k/uL (1.0-4.8); Lymphocytes % (A) 6 %; MCH 29.1 pg (25.0-35.0); MCV 93.9 fL (80.0-100.0); Mean Platelet Volume 8.1; Monocytes # (A) 0.9 k/uL (0-1.0); Monocytes % (A) 5 %; Neutrophils # (A) 16.9 k/uL (1.3-7.7); Neutrophils % (A) 87 %; Platelet Count 156 k/uL (150-450); RBC 3.95 m/uL (4.30-5.90); RDW 14.3 % (11.5-15.5); WBC 19.4 k/uL (3.8-10.6)
[2018-04-09] MEDS: FORMOTEROL FUMARATE 20 MCG/2 ML NEBU INHALATION SCH ×2 (08:14→19:14)
[2018-04-09] MEDS: BUDESONIDE 0.5 MG/2 ML NEBU INHALATION SCH ×2 (08:14→19:14)
[2018-04-09] MEDS: ALBUTEROL NEBULIZED 2.5 MG/3 ML INHALATION SCH ×3 (08:14→19:14)
[2018-04-09 08:28] LABS: Albumin 3.3 g/dL (3.5-5.0); Calcium 8.8 mg/dL (8.4-10.2); Potassium 4.7 mmol/L (3.5-5.1); Total Bilirubin 1.1 mg/dL (0.2-1.3); Total Protein 6.2 g/dL (6.3-8.2)
[2018-04-09] MEDS: BISACODYL 10 MG SUPP RECTAL SCH (08:57)
[2018-04-09] MEDS: PHENAZOPYRIDINE 100 MG TAB PO SCH ×3 (09:04→22:17)
[2018-04-09] MEDS: PANTOPRAZOLE 40 MG TABLET PO SCH ×2 (09:04→17:22)
[2018-04-09] MEDS: LEVOFLOXACIN 250 MG TAB PO SCH (09:05)
--- NOTE | 2018-04-09 09:47 | P.PN ---
Progress Note - Text Progress Note Date: 04/09/18 The patient is afebrile. He says that he passed a large amount of gas and some stool yesterday evening after a suppository and feels much better than yesterday. He denies any shortness of breath and says that his abdominal pain is essentially gone. His main complaint is irritation from the Jerry catheter. Urine draining from the Jerry catheter is grossly clear. White blood count this morning was 19,400. BUN/creatinine are improved at 28/2.03. Urine culture is pending but I suspect that this will show no growth as the hematuria and pyuria is an expected finding immediately following transurethral resection of a bladder tumor. From my standpoint the patient could be discharged later today with a catheter. He is scheduled to see Dr. Gray on 04/11.
--- NOTE | 2018-04-09 10:49 | P.PN ---
Progress Note - Text The patient is an 87-year-old gentleman who presented yesterday for second time to the emergency room with abdominal plain pain and distention. 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 The patient has been given intravenous fluids. IV therapy. bowel rest and laxatives. The patient has had some bowel movements. He started passing gas. He states he feels better. Less abdominal pain. Less short of breath. Vital signs this morning show a temperature 98.6 with a pulse of 96 and respirations 20. Blood pressure is 157/82 and he is 93% saturated on room air. Lungs are clear without wheezing as much this morning. Heart tones regular. Abdomen is less distended. Bowel sounds more active. Less tenderness especially in the left lower quadrant. No rebound, guarding or masses detected. No neurological abnormalities at this time. Laboratory White count has decreased from 23 down to 19. Hemoglobin 11.5 and platelet count 156. Left shift is less prominent. Sodium is 138 with potassium 4.7 and a CO2 content down to 18. BUN and creatinine have decreased down to 28 and 2.03 respectively with a GFR slightly improved to 29. Blood sugar 110. Urine culture pending. Impressions and plans The patient is clinically improving. Likely from post surgical ileus. At this time we'll continue with IV rehydration. 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 Some improvement is noted with his fluids. Continue antibiotics presently. Resume diet. If patient continues to improve clinically over the next 24 hours likely patient can be discharged to home. This was discussed with patient at bedside this morning. We'll also will resume his losartan for his blood pressure. If any problems or concerns Dr. Carvalho will be covering for me over the weekend.
[2018-04-09] MEDS: LOSARTAN 25 MG TAB PO SCH ×2 (13:04→20:09)
[2018-04-09] MEDS: traMADol-ACETAMINOP 37.5-325MG 1 EACH TAB PO PRN ×2 (14:47→20:08)
[2018-04-10] MEDS: SODIUM CHLORIDE 0.9% 1,000 ML IV SCH ×2 (05:22→16:47)
[2018-04-10] MEDS: BUDESONIDE 0.5 MG/2 ML NEBU INHALATION SCH ×2 (07:12→19:10)
[2018-04-10] MEDS: FORMOTEROL FUMARATE 20 MCG/2 ML NEBU INHALATION SCH ×2 (07:12→19:10)
[2018-04-10] MEDS: ALBUTEROL NEBULIZED 2.5 MG/3 ML INHALATION SCH ×3 (07:12→19:11)
[2018-04-10 08:28] LABS: Basophils % (A) 0 %; Eosinophils # (A) 0.1 k/uL (0-0.7); Eosinophils % (A) 1 %; HCT 34.8 % (39.0-53.0); Lymphocytes # (A) 2.3 k/uL (1.0-4.8); Lymphocytes % (A) 15 %; MCH 29.3 pg (25.0-35.0); MCHC 31.5 g/dL (31.0-37.0); MCV 92.8 fL (80.0-100.0); Mean Platelet Volume 7.8; Monocytes # (A) 0.7 k/uL (0-1.0); Monocytes % (A) 5 %; Neutrophils # (A) 11.5 k/uL (1.3-7.7); Neutrophils % (A) 77 %; Platelet Count 183 k/uL (150-450); RBC 3.75 m/uL (4.30-5.90); RDW 14.3 % (11.5-15.5); WBC 14.9 k/uL (3.8-10.6)
[2018-04-10 08:31] LABS: Calcium 8.8 mg/dL (8.4-10.2); Potassium 4.3 mmol/L (3.5-5.1)
[2018-04-10] MEDS: LOSARTAN 25 MG TAB PO SCH ×2 (10:22→22:35)
[2018-04-10] MEDS: PANTOPRAZOLE 40 MG TABLET PO SCH ×2 (10:23→19:03)
[2018-04-10] MEDS: LEVOFLOXACIN 250 MG TAB PO SCH (10:23)
[2018-04-10] MEDS: BISACODYL 10 MG SUPP RECTAL SCH (10:23)
[2018-04-10] MEDS: PHENAZOPYRIDINE 100 MG TAB PO SCH ×3 (10:23→22:35)
--- NOTE | 2018-04-10 10:30 | P.PN ---
Progress Note - Text The patient is an 87-year-old gentleman who 2 days ago presented for second time to the emergency room with abdominal pain and distention. It appears to be secondary to ileus. This morning he is feeling somewhat better. Still overall weak. Denies any chest pain or shortness of breath. Has had some flatus. Vital signs reveal temperature 97.6 with a pulse of 86 and respirations 16. Blood pressure 165/82 and he is 94% saturated on room air. Lungs are generally clear although diminished at bases. Abdomen is still distended and bowel sounds are present but still somewhat hypoactive. Some mild lower abdominal discomfort with pressure. No unusual edema. No neurological changes Laboratory White count still elevated but has decreased down to 14.9 with a hemoglobin of 11 and a platelet count of 183. Sodium of 140 with a potassium 4.3. BUN has decreased down to 26 and creatinine decreased on the 1.58 given him a GFR of 39. Blood sugar 110. Urine culture was no growth. Impression and plans Continue present medications and treatment and IV hydration. Anticipating discharge to home tomorrow. Discussed with patient and nursing at bedside this morning.
[2018-04-11] MEDS: traMADol-ACETAMINOP 37.5-325MG 1 EACH TAB PO PRN (01:37)
[2018-04-11] MEDS: SODIUM CHLORIDE 0.9% 1,000 ML IV SCH (05:34)
[2018-04-11 07:51] VITALS: BP 154/73; RESP 18; TEMP 98.1
--- NOTE | 2018-04-11 08:12 | P.DS ---
Providers Date of admission: 04/08/18 10:39 Attending physician: Ryan Arredondo Consults: 04/08/18 12:15 Consult Physician Urgent Consulting Provider: Harish Gray Consult Reason/Comments: abdominal pain, UTI Do you want consulting provider notified?: Yes Primary care physician: Ryan Arredondo The patient is a 87-year-old gentleman who was admitted to the [facility] with complaints of abdominal pain, nausea and inability to eat. He was not having bowel movements or passing flatus. Abdomen was markedly distended. Initial x-rays were consistent with possible bowel obstruction. Urinalysis also consistent with a possible urinary tract infection although patient had recently undergone removal of a bladder tumor by urology. On examination his abdomen was markedly distended on presentation with hypoactive bowel sounds and tenderness. He was also experiencing wheezing diffusely secondary to the elevated diaphragms and abdominal distention. The patient was kept nothing by mouth. Patient was seen by urology and general surgery and please refer to their notes. Laboratory values revealed an elevated white count of 23.6 with a left shift and a hemoglobin of 12.5 and platelet count of 173. BUN was 29 with a creatinine of 2.23 consistent with acute on chronic renal failure. Blood sugar was 140 and urinalysis showed large amount of leukocyte esterase with 20 white cells in her 100 RBCs. As mentioned patient was kept nothing by mouth. Jerry catheter remained in place. Antibiotics were initiated along with IV hydration. He was also given laxatives. Eventually he did start passing more gas. Clinically he improved. He was able to be ambulated. Urine culture returned no growth. Patient was started back on his diet which she tolerated. Plan at this time is for patient to be discharged to home as this morning he is alert and oriented. Vital signs are good. He is not having any wheezing this morning on auscultation and abdominal exam is soft and nontender. Bowel sounds active and only mild distention at this time. He is to resume his home medications that include his formoterol inhaler 20 g twice a day Pulmicort 0.5 twice a day Tylenol No. 3 one every 4 hours when necessary for pain Prilosec 20 mg twice a day Cozaar 100 mg daily His respiratory treatments with albuterol 2.5 mg 3 times a day An albuterol/Ventolin and HFA inhaler 1-2 puffs every 6 hours when necessary for shortness of breath/wheezing He is resume his regular diet and activities as tolerated. He is to follow-up with urology, Dr. Gray and Jerry catheter is to remain until removal ordered by urology. Office follow-up in 2 days. Discharge diagnoses 1. Acute abdominal ileus with marked abdominal distention and abdominal pain. Secondary acute on chronic respiratory failure related to elevated diaphragms and acute on chronic diastolic congestive heart failure with elevated BNP. 2. 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 3. COPD 4. Hypertension 5. Removal of recent bladder tumor. 6. Obesity 7. Hyperlipidemia 8. History of prostate cancer 9. Previous smoking history Patient Condition at Discharge: Good Plan - Discharge Summary Discharge Rx Participant: No New Discharge Prescriptions: No Action Albuterol Nebulized (Conc) [Ventolin Nebulized (Conc)] 2.5 mg INHALATION RT- TID Albuterol Inhaler [Ventolin Hfa Inhaler] 1 - 2 puff INHALATION RT-Q6H PRN PRN Reason: COPD SX Formoterol Fumarate [Perforomist] 20 mcg INHALATION RT-BID Budesonide [Pulmicort] 0.5 mg INHALATION RT-BID Omeprazole [PriLOSEC] 20 mg PO AC-BID Losartan Potassium [Cozaar] 100 mg PO DAILY Acetaminophen with Codeine [Tylenol w/codeine #3] 1 tab PO Q4H PRN 3 Days # 14 tab PRN Reason: Pain Discharge Medication List Albuterol Inhaler [Ventolin Hfa Inhaler] 1 - 2 puff INHALATION RT-Q6H PRN [History] Albuterol Nebulized (Conc) [Ventolin Nebulized (Conc)] 2.5 mg INHALATION RT-TID 03/30/18 [History] Budesonide [Pulmicort] 0.5 mg INHALATION RT-BID 03/30/18 [History] Formoterol Fumarate [Perforomist] 20 mcg INHALATION RT-BID 03/30/18 [History] Losartan Potassium [Cozaar] 100 mg PO DAILY 03/30/18 [History] Omeprazole [PriLOSEC] 20 mg PO AC-BID 03/30/18 [History] Acetaminophen with Codeine [Tylenol w/codeine #3] 1 tab PO Q4H PRN 3 Days #14 tab 04/06/18 [Rx] Follow up Appointment(s)/Referral(s): [facility], [NON-STAFF] -
[2018-04-11] MEDS: PANTOPRAZOLE 40 MG TABLET PO SCH (08:50)
[2018-04-11] MEDS: PHENAZOPYRIDINE 100 MG TAB PO SCH (08:50)
[2018-04-11] MEDS: BISACODYL 10 MG SUPP RECTAL SCH (08:51)
[2018-04-11] MEDS: LOSARTAN 25 MG TAB PO SCH (08:51)
[2018-04-11] MEDS: LEVOFLOXACIN 250 MG TAB PO SCH (08:51)
[2018-04-11] MEDS: FORMOTEROL FUMARATE 20 MCG/2 ML NEBU INHALATION SCH (09:07)
[2018-04-11] MEDS: BUDESONIDE 0.5 MG/2 ML NEBU INHALATION SCH (09:07)
[2018-04-11] MEDS: ALBUTEROL NEBULIZED 2.5 MG/3 ML INHALATION SCH (09:07)
[2018-04-11 09:29] VITALS: PULSE 74
--- NOTE | 2018-04-11 10:21 | P.PN ---
Subjective Progress Note Date: 04/11/18 The patient was in the hospital post-TURBT with pain. Urine culture that was negative. His creatinine is normalized with IV hydration. He is feeling much better. He'll be discharged home today. He will follow-up in my office on Wednesday for catheter removal and biopsy report which is pending. Objective - Vital Signs Vital signs: Vital Signs Temp 98.1 F 04/11/18 07:49 Pulse 74 04/11/18 09:29 Resp 18 04/11/18 07:49 BP 154/73 04/11/18 07:49 Pulse Ox 96 04/11/18 07:49 Intake & Output 04/10/18 04/11/18 04/11/18 18:59 06:59 18:59 Intake Total 480 Output Total 825 625 Balance -825 -145 Intake: Oral 480 Output: Urine 825 625 Other: Voiding Method Indwelling Catheter Indwelling Catheter - Labs CBC & Chem 7: 04/10/18 07:33 04/10/18 07:33 Labs: Microbiology - Last 24 Hours (Table) 04/08/18 09:00 Blood Culture - Preliminary Blood No Growth after 48 hours
== END 2018-04-11 14:15 ==
LOC: EC 08:03 → 4SSUR 10:39
PROVIDERS: ADMIT Internal Medicine; ATTEND Internal Medicine
DX: K56.7 Ileus, unspecified (principal); J96.20 Acute and chronic respiratory failure, unspecified whether with hypoxia or hypercapnia; I13.0 Hypertensive heart and chronic kidney disease with heart failure and stage 1 through stage 4 chronic kidney disease, or unspecified chronic kidney disease; I50.33 Acute on chronic diastolic (congestive) heart failure; N18.4 Chronic kidney disease, stage 4 (severe); N17.9 Acute kidney failure, unspecified; J44.9 Chronic obstructive pulmonary disease, unspecified; E66.9 Obesity, unspecified; Z68.31 Body mass index [BMI] 31.0-31.9, adult; E78.5 Hyperlipidemia, unspecified; K21.9 Gastro-esophageal reflux disease without esophagitis; E86.0 Dehydration; N39.0 Urinary tract infection, site not specified; F41.9 Anxiety disorder, unspecified; H53.9 Unspecified visual disturbance; Z87.891 Personal history of nicotine dependence; Z86.03 Personal history of neoplasm of uncertain behavior; Z79.899 Other long term (current) drug therapy; Z85.46 Personal history of malignant neoplasm of prostate; Z85.828 Personal history of other malignant neoplasm of skin; Z92.3 Personal history of irradiation; Z86.010 Personal history of colon polyps; Z82.49 Family history of ischemic heart disease and other diseases of the circulatory system; Z82.3 Family history of stroke; Z82.1 Family history of blindness and visual loss; Z82.61 Family history of arthritis; Z88.0 Allergy status to penicillin
CPT/HCPCS: 96361 ×3; 96365; 96375; 99285; 36415; 94640 ×8; 94664; 80053 ×2; 80048; 82150; 83605; 83690; 85025 ×3; 81001; 87040; 87086; 74018; 74176; G0378 ×4; J2270; J2405; J1956

== ENCOUNTER → 2019-02-24 | Outpatient (CLI) | payer MEDICARE, BC ==
--- NOTE | 2019-02-24 11:06 | XR ---
EXAMINATION TYPE: XR chest 2V DATE OF EXAM: 02/24/2019 COMPARISON: NONE HISTORY: Shortness of breath TECHNIQUE: Frontal and lateral views of the chest are obtained. FINDINGS: There is no focal air space opacity, pleural effusion, or pneumothorax seen. The cardiac silhouette size is within normal limits. The osseous structures are intact. Mild multilevel degener ative change of the spine and minimal diffuse osseous demineralization. IMPRESSION: No acute cardiopulmonary process.
== END | disposition home or self-care (01) ==
LOC: RADXRMAIN 10:45
PROVIDERS: ATTEND Family Medicine
DX: R06.02 Shortness of breath (principal); R05 Cough
CPT/HCPCS: 71046

== ENCOUNTER → 2020-10-01 | Outpatient (CLI) | payer MEDICARE, BC | END | disposition home or self-care (01) | LOC: LABWHC1 10:57 | PROVIDERS: ATTEND Physician Assistant | DX: E87.5 Hyperkalemia (principal) | CPT/HCPCS: 36415; 84132 ==

== ENCOUNTER → 2020-10-04 | Outpatient (CLI) | payer MEDICARE, BC ==
[2020-10-05 15:39] LABS: African American GFR (CKD) 44.2 (60.0-200.0); Anion Gap 11.6 mmol/L (4.00-12.00); Carbon Dioxide 20.4 mmol/L (21.6-31.8); Non-African American GFR(CKD) 38.2 (60.0-200.0); Potassium 4.8 mmol/L (3.5-5.5)
== END | disposition home or self-care (01) ==
LOC: LABWHC1 14:47
PROVIDERS: ATTEND Internal Medicine Interventional Cardiology
DX: I10 Essential (primary) hypertension (principal)
CPT/HCPCS: 36415; 80051; 82565; 84520